=== PATIENT | female | born 1965 | race Two or more races ===

== ENCOUNTER 2021-02-21 12:49 | Emergency (ER) | payer OTHER ==
[~2021-02-21] VITALS: Ht 162.6 cm; Wt 67.1 kg
[2021-02-21] MEDS ORDERED: MORPHINE SULFATE 4 MG/ML SYR/VIAL IV ONE (14:15)
[2021-02-21] MEDS ORDERED: ONDANSETRON HCL 4 MG/2 ML VIAL IV ONE (14:15)
[2021-02-21 15:10] LABS: Basophils # (auto) 0 10 ^3/uL (0-0.2); Basophils % (auto) 0.1 % (0.0-2.0); Eosinophils # (auto) 0 10 ^3/uL (0-0.8); Eosinophils % (auto) 0.1 % (0.0-7.0); Hematocrit 42.4 % (36.0-46.0); Hemoglobin 14.2 g/dL (12.2-16.2); Lymphocytes # (auto) 0.6 10 ^3/uL (0.4-5.4); Lymphocytes % (auto) 3.4 % (10.0-50.0); Mean Corpuscular Hgb Conc. 33.4 g/dL (32.0-36.0); Mean Corpuscular Volume 98.6 fL (80.0-100.0); Monocytes # (auto) 0.8 10 ^3/uL (0-1.3); Monocytes % (auto) 4.7 % (0.0-12.0); Neutrophils # (auto) 16.2 10 ^3/uL (1.6-8.6); Neutrophils % (auto) 91.7 % (37.0-80.0); Red Blood Cells 4.31 10^6/uL (4.0-5.20); Red Cell Distribution Width 12.6 % (11.8-14.3); White Blood Cell 17.7 10^3/uL (4.4-10.8)
[2021-02-21 15:27] LABS: Albumin 3.9 g/dL (3.4-5.0); BUN/Creatinine Ratio 24.7; Potassium 3.6 mmol/L (3.5-5.1)
[2021-02-21 15:30] LABS: Bilirubin, Total 0.5 mg/dL (0.2-1.0); Total Protein 7.2 g/dL (6.4-8.2)
[2021-02-21] MEDS ORDERED: IOHEXOL 350 MG/ML 100ML IJ ONE (16:17)
[2021-02-21 18:00] VITALS: BP 121/59
== END 2021-02-21 18:50 | disposition short-term general hospital (02) ==
LOC: EDBD 12:49 → ER 12:49
DX: S22.42XA Multiple fractures of ribs, left side, initial encounter for closed fracture (principal); S22.080A Wedge compression fracture of T11-T12 vertebra, initial encounter for closed fracture; V43.52XA Car driver injured in collision with other type car in traffic accident, initial encounter; Y93.89 Activity, other specified; Y92.488 Other paved roadways as the place of occurrence of the external cause; Y99.8 Other external cause status
CPT/HCPCS: 36415; 70450; 71250; 71275; 72125; 74176; 80053; 85025; 86850; 86900; 86901; 93005; 96374; 96375; 99285; J2270; J2405; Q9967